=== PATIENT | male | born 1990 ===

== ENCOUNTER 2021-03-26 12:58 | Emergency (ER) | payer SELFPAY | END 2021-03-26 13:03 | disposition left against medical advice (07) | LOC: ED 12:58 | DX: Z00.8 Encounter for other general examination (principal); Z53.21 Procedure and treatment not carried out due to patient leaving prior to being seen by health care provider ==

== ENCOUNTER 2021-04-16 15:44 | Emergency (ER) | payer SELFPAY ==
--- NOTE | 2021-04-16 17:36 | Emergency Department Report ---
Chief Complaint: Medical Clearance Stated Complaint: MEDICATION REFILL Time Seen by Provider: 04/16/21 17:29 - HPI History of Present Illness: 30-year-old man presents to the emergency room requesting refills of his psychiatry medications. Patient states he has a history of schizophrenia anxiety and PTSD. Patient states that he is relocated from [place] where he was in a mental institution and was discharged to follow-up at outpatient psychiatrist. Patient states at that time he was homeless and did not follow-up. Patient now relocates to [place] needing refills on his medications. Patient denies any suicidal homicidal ideation. - Exam Vital Signs: Vital Signs 04/16/21 16:27 Temperature 98.1 F Pulse Rate 64 Blood Pressure 126/77 [Left] O2 Sat by Pulse 98 Oximetry Physical Exam: General: Awake, appropriately interactive, no acute distress. Neck: Supple. Full range of motion intact. Cardiovascular: Normal peripheral perfusion. Pulmonary: No respiratory distress. Patient is speaking normally without use of accessory muscles. Skin: No apparent rashes or lesions. Neurological: No facial asymmetry. Speech is clear. Follows commands. Patient is alert and oriented. Musculoskeletal: Full range of motion, no crepitus. No tenderness to palpate nonerythematous no edema test appreciated. Able to bear weight and ambulate without difficulty. Distal neurovascular and motor/sensory function is intact. Psych: Cooperative. Appropriate mood and affect. MSE screening note: Focused history and physical exam performed. Due to findings the following was ordered: 30-year-old man presents to the emergency room requesting refills of his psychiatry medications. Patient states he has a history of schizophrenia anxiety and PTSD. Patient states that he is relocated from [place] where he was in a mental institution and was discharged to follow-up at outpatient psychiatrist. Patient states at that time he was homeless and did not follow-up. Patient now relocates to [place] needing refills on his medications. Patient denies any suicidal homicidal ideation. Consider patient I will refer him to [facility]. Reviewed [facility] and selected [place] and there is no record for patient being on benzos. ED Disposition for MSE Disposition: HOME / SELF CARE / HOMELESS Is pt being admited?: No Does the pt Need Aspirin: No Condition: Stable Additional Instructions: Recommend for you to follow-up at [facility] or another psychiatrist of your choosing. Referrals: PRIMARY CARE, [Primary Care Provider] - 3-5 Days [facility] [Outside] - 3-5 Days [facility] [Outside] - 3-5 Days
[2021-04-16 17:41] VITALS: BP 136/82
== END 2021-04-16 17:40 | disposition home or self-care (01) ==
LOC: ED 15:44
DX: F20.9 Schizophrenia, unspecified (principal); F41.8 Other specified anxiety disorders; F43.10 Post-traumatic stress disorder, unspecified; Z76.0 Encounter for issue of repeat prescription
CPT/HCPCS: 99282